=== PATIENT | male | born 1965 | race Caucasian/White ===

== ENCOUNTER 2017-06-02 21:31 | Emergency (ER) | payer BC ==
[2017-06-02] MEDS ORDERED: CYCLOBENZAPRINE HCL 10 MG TABLET PO ONE (22:46)
--- NOTE | 2017-06-02 22:47 | ERNOTE ---
Medical Problem HPI - General Chief Complaint: General Assessment Time Seen by Provider: 06/02/17 22:27 Source: patient Exam Limitations: no limitations - Immun/Allergies/Home Medications Immunizations: IMMUNIZATION HX Immunizations Up to Date Yes History of Influenza Vaccine No Hx Pneumococcal Vaccination No Allergies/Adverse Reactions: Allergies No Known Allergies Allergy (Unverified 04/19/14 13:17) Home Medications: HOME MEDICATIONS Lovastatin [Mevacor] 40 mg PO HS 04/19/14 [Last Taken Unknown] Tadalafil [Cialis] 20 mg PO DAILY PRN 04/19/14 [Last Taken Unknown] Apixaban [Eliquis] 5 mg PO BID 06/02/17 [Last Taken Unknown] Cyclobenzaprine HCl [Flexeril] 10 mg PO TID PRN #20 tab 06/02/17 [Last Taken Unknown] Escitalopram Oxalate [Lexapro] 10 mg PO DAILY 06/02/17 [Last Taken Unknown] Gabapentin 100 mg PO TID 06/02/17 [Last Taken Unknown] Metoprolol Succinate [Toprol Xl] 100 mg PO DAILY 06/02/17 [Last Taken Unknown] - History of Present History Narrative: Pt awoke with right rib pain. He had a chiropractor appointment today and did not get any relief. Worse with deep breath Timing: constant Severity: moderate, severe Review of Systems - Review of Systems Constitutional: Absent: recent illness EYE: Present: no symptoms reported ENT: Present: no symptoms reported Respiratory: Absent: shortness of breath Cardiology: Present: no symptoms reported Gastrointestinal/Abdominal: Present: no symptoms reported Genitourinary: Present: no symptoms reported Musculoskeletal: Present: no symptoms reported Skin: Present: no symptoms reported Neurological: Present: no symptoms reported Endocrine: Present: no symptoms reported Hematologic/Lymphatic: Present: easy bruising Psych: Present: no symptoms reported - Patient's Past Medical History Patient History - Cardiac/Respiratory: Hypertension Patient History - Cancer: No Hx of Cancer Patient History - Other: None - Family History Mother Family History - Medical: , Dementia Family History - Cardiac/Respiratory: Coronary Heart Disease, COPD, Hypertension , Hyperlipidemia Family History - Cancer: Lung Father Family History - Medical: Family History - Cardiac/Respiratory: No pertinent hx Family History - Cancer: Lung - Social History Living Situations: spouse Abuse History: No History of abuse Psych History: No pertinent hx Smoking Status: Former smoker Have you smoked in the past 12 months: No Do you dip or chew tobacco: No Patient requests Smoking Cessation Consult: No Initiate information on Smoking Cessation: No Alcohol Use: none Drug Use: none - Immunizations Immunizations Up to Date: Yes Hx Pneumococcal Vaccination: No History of Influenza Vaccine: No Physical Exam - Physical Exam General Appearance: Present: wd/wn, alert, no apparent distress Head Exam: Present: normal inspection, no evidence of injury Ears, Nose, Throat: Present: normal ENT inspection Neck: Present: normal inspection, nontender Respiratory: Present: no respiratory distress, no accessory muscle use Back Exam: Present: other - Pt states that his pain resolved just prior to my exam. Absent: vertebral tenderness, muscle spasm Extremity Exam: Present: normal inspection, normal range of motion Neurological Exam: Present: alert, oriented, normal mood/affect, no motor/ sensory deficits Skin Exam: Present: normal color, warm/dry ED Progress - Vital Signs Vital Signs: Vital Signs 06/02/17 21:38 Temperature 36.6 C Pulse Rate 78 Respiratory 18 Rate Blood Pressure 150/81 O2 Sat by Pulse 98 Oximetry - Progress/Reassessment Chief Complaint: General Assessment Departure Clinical Impression: Rib pain on right side - Departure Disposition: Home self-care Condition: Good Instructions: Muscle Cramps and Spasms, Heat Therapy Referrals: Radha Blank MD [Primary Care Provider] - Prescriptions: Cyclobenzaprine HCl [Flexeril] 10 mg PO TID PRN #20 tab PRN Reason: MUSCLE SPASMS
[2017-06-02] MEDS ORDERED: CYCLOBENZAPRINE HCL 10 MG TABLET ONE (22:52)
[2017-06-02 23:19] VITALS: BP 148/78
== END 2017-06-02 22:55 | disposition home or self-care (01) ==
LOC: ER 21:31
DX: R07.81 Pleurodynia (principal); I10 Essential (primary) hypertension